=== PATIENT | male | born 1970 ===

== ENCOUNTER 2018-08-13 08:14 | Emergency (ER) | payer BC ==
[2018-08-13 08:27] VITALS: BMI 29.1
[2018-08-13 08:32] VITALS: RESP 18; TEMP 97.5; O2SAT 99
[2018-08-13] MEDS ORDERED: Sodium Chloride 0.9% 1,000 ML IV STA (09:00)
[2018-08-13 09:16] LABS: BASO # 0.02 K/mm3 (0.0-2.0); BASO % 0.3 % (0.0-3.0); EOS # 0.3 (0.0-0.7); EOS % 3.6 % (1.5-5.0); HEMOGLOBIN 14.8 g/dL (14.0-18.0); LYMPH # 2.6 (1.2-3.4); LYMPH % 37.8 % (22.0-35.0); MEAN CELL VOLUME 87.8 fl (80.0-105.0); MEAN CORPUSCULAR HEMOGLOBIN 29.5 pg (25.0-35.0); MEAN CORPUSCULAR HGB CONC 33.6 g/dl (31.0-37.0); MEAN PLATELET VOLUME 9.6 fl (7.0-11.0); MONO # 0.4 (0.1-0.6); MONO % 5.6 % (1.0-6.0); RBC 5.02 10^6/uL (3.5-6.1); RED CELL DISTRIBUTION WIDTH 12.7 % (11.5-14.5)
--- NOTE | 2018-08-13 09:17 | ED PDOC ---
Arrival/HPI <Dexter Walters - Last Filed: 08/13/18 13:25> - General Historian: Patient - History of Present Illness Narrative History of Present Illness (Text): 08/13/18 09:06 47 y/o male with PMH of HTN, HLD, gastritis, biliary colic presents to the ED with RUQ throbbing abdominal pain since this morning. Patient states that he ate chicken at 5 am and half an hour after he stated to feel RUQ pain. It's 10/10 at worst, throbbing, progressive, radiates to midabdomen, no alleviating or worsening factors. Pain is associated with nausea, malaise. He denied vomiting, diarrhea, hematemesis, hematochezia, fever, chills. As per records, patient had EGD in 2016 that shows gastritis and had ERCP that shows biliary sludge. Patient denied chest pain, SOB, headache, dizziness, focal neurological symptoms. 08/13/18 09:19 Time/Duration: 4-6 hours Severity Level: 10 Activities at Onset: Eating Context: Home <Josh Mcclure - Last Filed: 08/13/18 13:30> - General Chief Complaint: Back Pain Time Seen by Provider: 08/13/18 08:41 Past Medical History - Provider Review Nursing Documentation Reviewed: Yes - Infectious Disease Hx of Infectious Diseases: None - Tetanus Immunization Tetanus Immunization: Unknown - Cardiac Hx Hypertension: Yes - Pulmonary Hx Asthma: Yes - Hematological/Oncological Hx Blood Transfusions: No Hx Blood Transfusion Reaction: No - Musculoskeletal/Rheumatological Hx Musculoskeletal Disorders: Yes Other/Comment: chronic shoulder pain - Gastrointestinal Hx Gastrointestinal Disorders: Yes Hx Gall Bladder Disease: Yes (gallstones) Hx Gastroesophageal Reflux: Yes Other/Comment: lactose intolerance - Psychiatric Hx Emotional Abuse: No Hx Physical Abuse: No Hx Substance Use: No - Surgical History Other/Comment: Dental surgery. patient has metal in his mouth - Anesthesia Hx Anesthesia Reactions: No Hx Malignant Hyperthermia: No - Suicidal Assessment Feels Threatened In Home Enviroment: No <Josh Mcclure - Last Filed: 08/13/18 13:30> Family/Social History - Physician Review Nursing Documentation Reviewed: Yes Family/Social History: No Known Family HX Smoking Status: Never Smoked Hx Alcohol Use: Yes Hx Substance Use: No <Josh Mcclure - Last Filed: 08/13/18 13:30> Allergies/Home Meds <SelenaDexter - Last Filed: 08/13/18 13:25> <[email or web address] - Last Filed: 08/13/18 13:30> Allergies/Adverse Reactions: Allergies Penicillins Allergy (Verified 08/13/18 08:27) ANAPHYLAXIS Home Medications: Home Meds Medication Instructions Recorded Confirmed Atorvastatin [Lipitor] 1 tab PO HS 08/13/18 08/13/18 Diclofenac 1 tab PO PRN PRN 08/13/18 08/13/18 Losartan [Cozaar] 1 tab PO DAILY 08/13/18 08/13/18 Review of Systems - Physician Review All systems were reviewed & negative as marked: Yes - Review of Systems Constitutional: Fatigue. absent: Fevers, Night Sweats Eyes: Normal ENT: Normal Respiratory: Normal. absent: SOB, Cough Cardiovascular: Normal. absent: Chest Pain, Palpitations Gastrointestinal: Abdominal Pain, Nausea. absent: Stool Changes, Constipation, Diarrhea, Vomiting, Hematochezia, Hematemesis Genitourinary Male: Normal. absent: Dysuria, Frequency Musculoskeletal: Myalgias Skin: Normal. absent: Rash, Pruritis Neurological: Normal. absent: Headache, Dizziness Endocrine: Normal Hemo/Lymphatic: Normal Psychiatric: Normal <Josh Mcclure - Last Filed: 08/13/18 13:30> Physical Exam Vital Signs Temp Pulse Resp BP Pulse Ox 08/13/18 08:32 97.5 F L 69 18 132/81 99 <Rubens Waltersoper - Last Filed: 08/13/18 13:25> Vital Signs Reviewed: Yes Vital Signs Temp Pulse Resp BP Pulse Ox 08/13/18 08:32 97.5 F L 69 18 132/81 99 Temperature: Afebrile Blood Pressure: Normal Pulse: Regular Respiratory Rate: Normal Appearance: Positive for: Well-Appearing, Non-Toxic, Comfortable Pain Distress: Moderate Mental Status: Positive for: Alert and Oriented X 3 - Systems Exam Head: Present: Atraumatic, Normocephalic Pupils: Present: PERRL Extroacular Muscles: Present: EOMI Conjunctiva: Present: Normal Ears: Present: Normal Mouth: Present: Dry Pharnyx: Present: Normal. No: ERYTHEMA, EXUDATE Nose (External): Present: Atraumatic Nose (Internal): Present: Normal Inspection Neck: Present: Normal Range of Motion Respiratory/Chest: Present: Clear to Auscultation, Good Air Exchange. No: Respiratory Distress, Accessory Muscle Use Cardiovascular: Present: Regular Rate and Rhythm, Normal S1, S2 Abdomen: Present: Tenderness, Other (RUQ tender to palpate. decreased bowel sounds). No: Distention, Peritoneal Signs, Rebound, Guarding, McBurney's Point Tender, Mass/Organomegaly Back: Present: Normal Inspection. No: CVA Tenderness Upper Extremity: Present: Normal Inspection. No: Cyanosis, Edema Lower Extremity: Present: Normal Inspection, NORMAL PULSES. No: Edema, CALF TENDERNESS Neurological: Present: GCS=15, CN II-XII Intact, Speech Normal Skin: Present: Warm, Dry, Normal Color. No: Rashes Psychiatric: Present: Alert, Oriented x 3, Normal Insight, Normal Concentration <Josh Mcclure - Last Filed: 08/13/18 13:30> Medical Decision Making ED Course and Treatment: 08/13/18 09:37 Seen and examined with the resident. Our history and physical exam reveals a young man complaining of acute onset of right-sided abdominal pain beginning at approximately 5 AM today. He went to bed last night feeling fine. He ate some fried chicken and then the pain began. There is some nausea but no vomiting or diarrhea. No radiation of the pain. No genitourinary symptoms. No fever or chills. He has never experienced this previously. History of the EGD and sludge in the gallbladder. He is in severe distress with a rigid abdomen. There is marked right lower quadrant abdominal tenderness. 08/13/18 13:[address] scan shows a right UVJ stone. Discharged home to follow-up with urologist. Follow-up in ER as needed. - Lab Interpretations Lab Results: Total Bilirubin 0.6 mg/dL (0.2-1.3) 08/13/18 09:00 AST 35 U/L (17-59) 08/13/18 09:00 ALT 73 U/L (7-56) H 08/13/18 09:00 Alkaline Phosphatase 59 U/L (38-126) 08/13/18 09:00 Total Protein 7.8 g/dL (5.8-8.3) 08/13/18 09:00 Albumin 4.8 g/dL (3.0-4.8) 08/13/18 09:00 Globulin 3.0 gm/dL 08/13/18 09:00 Albumin/Globulin Ratio 1.6 (1.1-1.8) 08/13/18 09:00 Lipase 77 U/L (23-300) 08/13/18 09:00 - RAD Interpretation Radiology Orders: 08/13/18 09:00 ABDOMEN COMPLETE [US] Stat - Medication Orders Current Medication Orders: Sodium Chloride (Sodium Chloride 0.9%) 1,000 mls @ 999 mls/hr IV .Q1H1M STA Stop: 08/13/18 10:00 Last Admin: 08/13/18 09:14 Dose: 999 mls/hr eMAR Start Stop Document 08/13/18 09:14 BETHANY (Rec: 08/13/18 09:14 BETHANY [id number]) Intravenous Solution Start Date 08/13/18 Start Time 09:14 End Date 08/13/18 End time 10:14 Total Infusion Time 60 Discontinued Medications Ketorolac Tromethamine (Toradol) 30 mg IVP STAT STA Stop: 08/13/18 09:01 Last Admin: 08/13/18 09:14 Dose: 30 mg MAR Pain Assessment Document 08/13/18 09:14 BETHANY (Rec: 08/13/18 09:15 BETHANY [id number]) Pain Reassessment Is this a pain reassessment? No Sleep Is patient sleeping during reassessment? No Presence of Pain Presence of Pain Yes IVP Administration Document 08/13/18 09:14 BETHANY (Rec: 08/13/18 09:15 BETHANY [id number]) Charges for Administration # of IVP Administrations 1 Morphine Sulfate (Morphine) 4 mg IVP STAT STA Stop: 08/13/18 09:27 Ondansetron HCl (Zofran Inj) 4 mg IVP STAT STA Stop: 08/13/18 09:01 Last Admin: 08/13/18 09:14 Dose: 4 mg IVP Administration Document 08/13/18 09:14 BETHANY (Rec: 08/13/18 09:14 BETHANY [id number]) Charges for Administration # of IVP Administrations 1 Pantoprazole Sodium (Protonix Inj) 40 mg IVP STAT STA Stop: 08/13/18 09:01 Last Admin: 08/13/18 09:14 Dose: 40 mg IVP Administration Document 08/13/18 09:14 BETHANY (Rec: 08/13/18 09:14 BETHANY [id number]) Charges for Administration # of IVP Administrations 1 <Dexter Walters - Last Filed: 08/13/18 13:25> - RAD Interpretation Radiology Orders: 08/13/18 09:00 ABDOMEN COMPLETE [US] Stat - Medication Orders Current Medication Orders: Sodium Chloride (Sodium Chloride 0.9%) 1,000 mls @ 999 mls/hr IV .Q1H1M STA Stop: 08/13/18 10:00 Ketorolac Tromethamine (Toradol) 30 mg IVP STAT STA Stop: 08/13/18 09:01 Ondansetron HCl (Zofran Inj) 4 mg IVP STAT STA Stop: 08/13/18 09:01 Pantoprazole Sodium (Protonix Inj) 40 mg IVP STAT STA Stop: 08/13/18 09:01 <Josh Mcclure - Last Filed: 08/13/18 13:30> - PA / [employer] / Resident Statement / has reviewed & agrees with the documentation as recorded. / has examined the patient and agrees with the treatment plan. <Dexter Walters - Last Filed: 08/13/18 13:25> Disposition/Present on Arrival - Present on Arrival Any Indicators Present on Arrival: No History of DVT/PE: No History of Uncontrolled Diabetes: No Urinary Catheter: No History of Decub. Ulcer: No - Disposition Have Diagnosis and Disposition been Completed?: Yes Disposition Time: 13:27 Patient Plan: Discharge <Dexter Walters - Last Filed: 08/13/18 13:25> - Present on Arrival Any Indicators Present on Arrival: No History of DVT/PE: No History of Uncontrolled Diabetes: No Urinary Catheter: No History of Decub. Ulcer: No History Surgical Site Infection Following: None - Disposition Have Diagnosis and Disposition been Completed?: Yes Patient Plan: Discharge <Josh Mcclure - Last Filed: 08/13/18 13:30> - Disposition Diagnosis: Renal colic on right side Disposition: HOME/ ROUTINE Discharge Instructions (ExitCare): Renal Colic (DC) Additional Instructions: Increase fluids. Follow-up with PMD and urologist. Follow-up in ER as needed. Prescriptions: oxyCODONE/Acetaminophen [Percocet 5/325 mg Tab] 1 ea PO Q6 #15 tab Ondansetron ODT [Zofran ODT] 4 mg PO Q6 #20 odt Referrals: Randy White MD [Staff Provider] - Follow up with primary Forms: [facility] (Setswana), WORK NOTE
[2018-08-13] MEDS ORDERED: Morphine 4 mg/ml ISec IVP STA (09:26)
[2018-08-13 09:29] LABS: ALB/GLOB RATIO 1.6 (1.1-1.8); ALBUMIN 4.8 g/dL (3.0-4.8); ALT/SGPT 73 U/L (7-56); AST/SGOT 35 U/L (17-59); BLOOD UREA NITROGEN 18 mg/dL (7-21); CALCIUM 9.5 mg/dL (8.4-10.5); GFR NON-AFRICAN AMERICAN > 60; LIPASE 77 U/L (23-300)
--- NOTE | 2018-08-13 10:40 | US ---
Date of service: 08/13/2018 HISTORY: RUQ pain COMPARISON: None. TECHNIQUE: Sonographic evaluation of the abdomen. FINDINGS: LIVER: Measures 17.1 cm. Normal echogenicity of the liver parenchyma. Simple cyst right hepatic lobe, 1.8 cm. No solid mass. No biliary dilatation. Smooth contour. GALLBLADDER: Unremarkable. No gallstones. COMMON BILE DUCT: Measures 4 mm. No stones. No dilatation. PANCREAS: Unremarkable as visualized. No mass. No ductal dilatation. RIGHT KIDNEY: Measures 12.1cm. Normal echogenicity. No calculus, mass, or hydronephrosis. LEFT KIDNEY: Measures 12.0cm. Normal echogenicity. No calculus, mass, or hydronephrosis. SPLEEN: Normal in size and contour. No mass. AORTA: No aneurysmal dilatation. IVC: Unremarkable. OTHER FINDINGS: None. IMPRESSION: Simple cyst right lobe of liver, 1.8 cm. No evidence of cholelithiasis or cholecystitis.
--- NOTE | 2018-08-13 12:27 | CT ---
Date of service: 08/13/2018 PROCEDURE: CT Abdomen and Pelvis without intravenous contrast HISTORY: abdominal pain COMPARISON: 05/22/2016 TECHNIQUE: Without contrast.. Contrast dose: 0 Radiation dose: Total exam DLP = 427.36 mGy-cm. This CT exam was performed using one or more of the following dose reduction techniques: Automated exposure control, adjustment of the mA and/or kV according to patient size, and/or use of iterative reconstruction technique. FINDINGS: LOWER THORAX: Unremarkable. LIVER: Normal size, contour and attenuation. Nonspecific 1.9 cm rounded low-attenuation mass in the medial segment of the left hepatic lobe, unchanged. No other mass. Smooth contour. No biliary dilatation. GALLBLADDER AND BILE DUCTS: Unremarkable. PANCREAS: Unremarkable. No gross lesion or ductal dilatation. SPLEEN: Unremarkable. ADRENALS: Unremarkable. No mass. KIDNEYS AND URETERS: There is nonspecific cortical scar in the upper pole left kidney, unchanged from prior examination. There is no hydronephrosis. There is minimal right hydroureter. There is trace right perinephric fluid. There is an obstructing 3 mm calculus at the right ureterovesical junction. There is no renal calculus. There is no renal mass. VASCULATURE: Unremarkable. No aortic aneurysm. No aortic atherosclerotic calcification or mural plaque present. BOWEL: Unremarkable. No obstruction. No gross mural thickening. APPENDIX: Unremarkable. Normal appendix. PERITONEUM: Unremarkable. No free fluid. No free air. LYMPH NODES: Unremarkable. No enlarged lymph nodes. BLADDER: Unremarkable. REPRODUCTIVE: Normal prostate BONES: No acute fracture. OTHER FINDINGS: None. IMPRESSION: Obstructing 3 mm calculus at the right ureterovesical junction. Minimal right hydroureter. Trace right perinephric fluid. Incidental findings as above.
[2018-08-13 14:34] VITALS: BP 129/76; PULSE 75
== END 2018-08-13 13:40 | disposition home or self-care (01) ==
LOC: ED 08:14
DX: N23 Unspecified renal colic (principal); I10 Essential (primary) hypertension; E73.9 Lactose intolerance, unspecified
CPT/HCPCS: 74176; 76700; 80053; 83690; 83735; 84100; 85025; 96361; 96374; 96375; 99283; C9113; J1885; J2270; J2405; J7030